=== PATIENT | female | born 1975 | race Caucasian/White ===

== ENCOUNTER 2018-09-04 15:23 | Emergency (ER) | payer OTHER ==
[~2018-09-04] VITALS: Ht 154.9 cm; Wt 66.2 kg
[2018-09-04 15:31] VITALS: BP_SYST 143
--- NOTE | 2018-09-04 15:31 | NUR ---
Patient triaged and placed in waiting room. VSS and patient appears in no acute distress at this time. Accompanied by , awaiting available bed, and MD notified of need for MSE.
--- NOTE | 2018-09-04 16:31 | NUR ---
Patient to ER bed 08 for evaluation. Side rails up. Report given to HEMA PAIGE.
[2018-09-04 17:00] VITALS: BP_SYST 128
--- NOTE | 2018-09-04 17:00 | NUR ---
ER at bedside examining patient.
--- NOTE | 2018-09-04 17:14 | NUR ---
Patient eloped. Dr. Chino made aware
== END 2018-09-04 17:17 | disposition left against medical advice (07) ==
LOC: SED 15:23
DX: T16.2XXA Foreign body in left ear, initial encounter (principal); R03.0 Elevated blood-pressure reading, without diagnosis of hypertension; X58.XXXA Exposure to other specified factors, initial encounter; Y93.89 Activity, other specified; Y92.89 Other specified places as the place of occurrence of the external cause; Y99.8 Other external cause status
CPT/HCPCS: 99284